=== PATIENT | female | born 1945 | race Caucasian/White ===

== ENCOUNTER 2017-04-18 05:14 | Inpatient (IN) ==
[2017-04-18] MEDS ORDERED: NOZIN NASAL SWAB NAS ONE ×2 (05:20→09:19)
[2017-04-18] MEDS ORDERED: METOCLOPRAMIDE 10mg/2ml INJECTION IVP ONE (05:20)
[2017-04-18] MEDS ORDERED: ACETAMINOPHEN 500 MG TABLET PO ONE (05:20)
[2017-04-18] MEDS ORDERED: CEFAZOLIN 1 G INJECTION IV ONE (05:20)
[2017-04-18] MEDS ORDERED: EPINEPHrine 0.25 MG, BUPIVACAINE 0.25% PF 75 ML, MORPHINE SULFATE 15 MG, KETOROLAC INJ ... IJ ONE (05:20)
[2017-04-18] MEDS ORDERED: ONDANSETRON 4 MG/2 ML INJECTION IVP ONE (05:20)
[2017-04-18] MEDS ORDERED: LIDOCAINE 1% (10mg/ml) 10mL MDV SQ ONE (05:20)
[2017-04-18] MEDS ORDERED: TRANEXAMIC ACID 1,000 MG in NS 100 ML TOP SCH (05:20)
[2017-04-18] MEDS ORDERED: FAMOTIDINE PREMIX 20 MG/50 ML BAG IV ONE (05:20)
[2017-04-18] MEDS: NS 1,000 ML IV SCH ×6 (05:59→22:57)
[2017-04-18] MEDS: SALINE FLUSH 10ml SYRINGE IVF PRN ×3 (06:00→14:31)
[2017-04-18] MEDS ORDERED: VANCOMYCIN 1,000 MG INJECTION ONE (06:34)
[2017-04-18] MEDS ORDERED: PROPOFOL 500 MG/50 ML VIAL IV ONE ×2 (06:42→08:00)
[2017-04-18] MEDS ORDERED: SEVOFLURANE 250ml LIQUID IH ONE (06:44)
[2017-04-18] MEDS ORDERED: MIDAZOLAM 5mg/5ml INJECTION IVP ONE (06:52)
[2017-04-18] MEDS ORDERED: ROPIVACAINE 0.5% (5mg/ml) 30ml INJ ONE (06:53)
[2017-04-18] MEDS ORDERED: GLYCOPYRROLATE 0.4 MG/2 ML INJECTION ONE (07:12)
[2017-04-18] MEDS ORDERED: LIDOCAINE 2% JELLY Tube 30ml ONE (07:13)
[2017-04-18] MEDS ORDERED: VANCOMYCIN 1,000 MG INJECTION IAR ONE (07:14)
[2017-04-18] MEDS ORDERED: FentaNYL 250 MCG/5 ML INJECTION ONE (07:22)
[2017-04-18] MEDS ORDERED: KETAMINE 500 MG/10 ML INJECTION ONE (07:24)
--- NOTE | 2017-04-18 07:47 | Anesthesia Preoperative Report ---
Anesthesia Preoperative Record - Date and Time Date: 04/18/17 Preoperative Diagnosis: left knee osteoarthritis Proposed Procedure: left total knee arthroplasty NPO Since Date: 04/18/17 NPO Since Time: 05:00 Allergies/Adverse Reactions: Allergies Allergy/AdvReac Type Severity Reaction Status Date / Time codeine Allergy Intermediate RASH Verified 04/18/17 05:39 - Vital Signs Vital Signs: Temp Pulse Resp BP Pulse Ox 98 F 62 18 138/56 94 04/18/17 06:09 04/18/17 07:03 04/18/17 07:03 04/18/17 07:03 04/18/17 07:03 Height and Weight: Height 1.52 m Weight 90.1 kg Body Mass Index 38.7 - Medications Inpatient Medications: Current Medications Sodium Chloride (Normal Saline) 1,000 mls @ 50 mls/hr IV .Q20H MARIEL Last Admin: 04/18/17 05:59 Dose: 50 mls/hr Tranexamic Acid 1,000 mg/ (Sodium Chloride) 110 mls @ 1,000 mls/min TOP INTRAOP MARIEL Stop: 04/19/17 05:21 Midazolam HCl (Versed) 2 mg IVP O ONE Stop: 04/18/17 06:53 Last Admin: 04/18/17 06:54 Dose: 2 mg Sodium Chloride (Iv Flush) 10 - 80 ml IVF PRN PRN PRN Reason: Flushing Last Admin: 04/18/17 06:04 Dose: 10 ml Vancomycin HCl (Vancocin) 1,000 mg IAR O ONE Stop: 04/18/17 07:15 Home Medications: Home Medications Medication Instructions Recorded Confirmed Type Metformin HCl 500 mg PO TID #0 10/24/16 04/18/17 History Simvastatin [Zocor] 80 mg PO HS #0 tab 10/24/16 04/18/17 History Acetaminophen [Tylenol Extra 1 - 2 tab PO Q6H PRN #0 tab 03/27/17 04/18/17 History Strength] Albuterol Sulfate [Proair Hfa] 2 puff INH Q4-6HPRN PRN #0 03/27/17 04/18/17 History Atenolol 1.5 tab PO BID #0 tab 03/27/17 04/18/17 History Doxepin HCl 1 cap PO DAILY PRN #90 03/27/17 04/18/17 History Doxepin HCl 1 cap PO HS #0 03/27/17 04/18/17 History Mometasone/Formoterol [Dulera 200 2 puff INH BID #0 03/27/17 04/18/17 History Mcg/5 Mcg Inhaler] Triamterene/Hydrochlorothiazid 1 each PO DAILY 04/13/17 04/18/17 History [Triamterene-Hctz 37.5-25 mg Cp] Is Patient on Beta Brandon?: Yes Beta Brandon: Yes - Medical History Respiratory: Reports: Chronic Obstructive Pulmonary Disease (COPD) Cardiovascular: Reports: Hypertension, High Cholesterol Renal/Endocrine: Reports: Diabetes Mellitus Type 2 - Surgical History HEENT Surgeries: Reports: Eye Surgery (Ebenezer Cataract with IOL implant), Other ( Eustachian tube dysfunction) Musculoskeletal Surgery/Tx: Reports: Knee Arthroscopy (Rt) Reproductive Surgery/Treatment: Reports: Section (X2) - Social History Smoking Status: Former smoker Packs per day: 1 Pack-years: 52 (quit 2015) Hx Chewing Tobacco Use: No Second Hand Exposure: No Substance Use Type: does not use Alcohol Intake Frequency: does not drink - Pertinent Findings Laboratory: CBC and BMP 04/18/17 05:50 04/18/17 05:50 BMP 04/18/17 05:50 Sodium 143 Potassium 4.6 Chloride 105 Carbon Dioxide 24 BUN 35.0 H Creatinine 1.4 H Glucose 157 H Calcium 9.8 Liver Function 04/18/17 Range/Units 05:50 Total Bilirubin 0.60 (0.20-1.30) MG/DL AST 19 (14-36) U/L ALT 31 (9-52) U/L Alkaline Phosphatase 110 (38-126) U/L Albumin 4.4 (3.5-5.0) G/DL EKG Rhythm: Normal Sinus Rhythm - Physical Exam Respiratory Exam: Present: lungs clear Cardiovascular Exam: Present: regular rate and rhythm - Airway Assessment Mallampati Score: III TMD: 3 Fingerbreadths Neck Extension: good Teeth: chipped teeth/crowns Overall Assessment: may be difficult mask vent, may be difficult intubation - ASA ASA Score: 3 - Plan Anesthesia: General Inhalation Gases Peripheral Nerve Block: Saphenous-Left - Discussion Discussion: Discussed risks/options/alternatives of anesthesia and questions answered. Patient consents. Nursing pain assessment noted. Present for Discussion: spouse Attestation Statement: Prior to the delivery of any anesthetic medication, I examined the patient, developed the plan, obtained the patient's consent and discussed the risk and benefits of the procedure with the patient/guardian.
[2017-04-18] MEDS ORDERED: HYDROMORPHONE 2 MG/ML INJECTION IVP PRN ×2 (07:52→09:33)
--- NOTE | 2017-04-18 07:52 | Anesthesia Procedure Note ---
Peripheral Nerve Blockade - Procedure Physician: Adam Velez MD Date: 04/18/17 Surgical Procedure: Left Total Knee Discussion: Discussed risks/options/alternatives of anesthesia and questions answered. Patient consents. Nursing pain assessment noted. Block Start: 06:58 Block Stop: 07:02 Blocked Employed: Adductor Canal Indication: Post-Operative Pain Approach: Left Side Confirmed Position: Supine Patient: Consent, Risks/Benefits Discussed, Informed, Post Block Act. Discussed IV Sedation: Yes Sedation: Sedate w/Meaningful Contact Midazolam (mg): 2 Initial Vital Signs: Pulse Rhythm 04/18/17 05:55 Post Vital Signs: Temp Pulse Resp BP Pulse Ox 98 F 62 18 138/56 94 04/18/17 06:09 04/18/17 07:03 04/18/17 07:03 04/18/17 07:03 04/18/17 07:03 Initial Pain Pain Score: 0 Post Block Pain Score: 0 Prep: Chlorhexadine/ETOH - Injectate Ropivacaine (%): 0.5 Ropivacaine (mL): 20 Was Epi 1:200,000 Used?: No Injection: Injection made incrementally with constant monitoring and aspiration every ml
[2017-04-18] MEDS ORDERED: HYDROMORPHONE 2 MG/ML INJECTION ONE (08:10)
--- NOTE | 2017-04-18 08:44 | Operative Note ---
- Procedure Date of Admission: 04/18/17 Side: left Preoperative Diagnosis: knee primary DJD Postoperative Diagnosis: Same as preoperative diagnosis. Operation: total knee arthroplasty (left) Surgeon: Baldomero Velez MD [place] [employer] Supervisor: JIAN Singh Complications: None. Anesthesia: General Inhalation Gases Peripheral Nerve Block: Saphenous-Left Estimated Blood Loss: See Anesthesia Record. Fluids: Please see Anesthesia Record. Description of Procedure: Mrs. Ruiz and the [] knee were identified and marked in the preoperative holding area. She was brought back to the operating suite and placed supine on the operating table. Spinal anesthetic was administered. The operative lower extremity was prepped and draped in a sterile fashion. Timeout was performed. She had a fixed varus deformity with no flexion contracture. An anterior midline incision followed by medial parapatellar arthrotomy was performed. The tourniquet was inflated to 250 mmHg. The patella was resurfaced to a size 29. A distal femoral osteotomy was then performed in 5 of valgus using intramedullary guide. The femur was sized at a 3 and rotation set using the epicondylar axis. The tourniquet was then deflated. Distal femoral cuts were performed with a 4-in-1 cutting block. A proximal tibial cut was then made perpendicular to its long axis using an extramedullary guide. At this point remaining meniscus and osteophytes were removed and joint cocktail was injected throughout soft tissue. Trial components were placed with an 11 mm spacer. This allowed for full extension and flexion and the patella tracked well. The leg was then exsanguinated and the tourniquet inflated to 250 mmHg. The tibia was then stamped at a size 3 at the proper rotation. The bone was then prepared for cementing and [employer]do Triathalon components were cemented into place and allowed to cure in extension. The tourniquet was then let down and hemostasis obtained with electrocautery. Betadine solution was used during the curing period for 3 minutes. 1 g of TXA was also allowed to sit in the knee for 5 minutes. 1 g of vancomycin powder was placed into the joint before the capsulotomy was repaired with #1 Vicryl. I then left my physiotherapy assistant close the subcutaneous tissue and skin with 2-0 Vicryl and Monocryl. Dermabond was used on the skin. The drapes were then removed and she was taken to recovery room under the care of anesthesia.
--- NOTE | 2017-04-18 08:53 | History & Physical Update ---
- History and Physical Update Date: 04/18/17 Update: I evaluated this patient and found no changes in the history and clinical exam findings. The treatment plan and recommendations are also unchanged from the previous documentation.
[2017-04-18] MEDS ORDERED: ONDANSETRON 4 MG/2 ML INJECTION IVP PRN (09:19)
[2017-04-18] MEDS ORDERED: DiphenhydrAMINE 50 MG/ML INJECTION IVP PRN (09:19)
[2017-04-18] MEDS ORDERED: LORazepam 1 MG TABLET PO PRN (09:19)
[2017-04-18] MEDS ORDERED: ALBUTEROL HFA INHALER 8gm ORAL INH PRN (09:19)
[2017-04-18] MEDS ORDERED: DiphenhydrAMINE 25 MG CAPSULE PO PRN (09:19)
[2017-04-18] MEDS ORDERED: DOXEPIN 10 MG CAPSULE PO PRN (09:19)
[2017-04-18] MEDS ORDERED: TRANEXAMIC ACID 1,000 MG in NS 100 ML TOP ONE ×2 (09:30→09:32)
--- NOTE | 2017-04-18 09:38 | Anesthesia Postoperative Note ---
- Date and Time Date: 04/18/17 Time: 09:35 - Status Patient Participated in Evaluation: Patient Participated in Person Vital Signs: Temp Pulse Resp BP Pulse Ox 9.8 F L 73 16 139/71 100 04/18/17 09:02 04/18/17 09:02 04/18/17 09:02 04/18/17 09:02 04/18/17 09:02 Respiratory Function: Airway Patent Cardiovascular Function: Regular Pulse Mental Status: Alert and Oriented Pain Intensity: 8 (tolerable) Hydration: IV Infusing Complications During Recover: None Apparent - Follow-Up Instructions Instructions: Per Surgeon
[2017-04-18] MEDS ORDERED: INSULIN REGULAR, HUMAN 100 UNIT/ML INJECTION IVP ONE (09:41)
--- NOTE | 2017-04-18 09:51 | XRay Report ---
Indication: Lt TKA PROCEDURE: XR knee LT 2V: Encounter: Initial Comparison: Left knee radiographs dated April 06, 2017 Findings: Postoperative changes of left total knee replacement are seen. There is expected postoperative subcutaneous gas. No evidence of hardware failure or acute fracture. No retained radiopaque surgical instruments or sponges. Overlying material causing artifact. Impression: New left total knee prosthesis without evidence of immediate complication. .
[2017-04-18] MEDS: ACETAMINOPHEN 325 MG TABLET PO SCH ×4 (10:48→22:52)
--- NOTE | 2017-04-18 11:42 | Pharmacy Consult ---
Pharmacy Consult-Warfarin - Consult Information 71 y.o. Female post op left total knee arthroplasty. Warfarin protocol ordered post-op. Patient is warfarin naive. goal INR= 1.5 to 2.0. Will give Warfarin 4 mg po today. Patient also has order for Lovenox 40 mg sq daily until INR > 1.5. Pharmacy will monitor and adjust as needed. Thank you for the protocol, Cassie Arango RPh
[2017-04-18] MEDS: DOCUSATE SODIUM 100 MG CAPSULE PO SCH ×2 (11:59→20:34)
[2017-04-18] MEDS: TRIAMTERENE/HCTZ 37.5 MG-25 MG TABLET PO SCH (11:59)
[2017-04-18] MEDS: POLYETHYL GLYCOL 3350 17gm PACKET PO SCH (11:59)
[2017-04-18] MEDS ORDERED: WARFARIN 4 MG TABLET PO SCH (12:00)
[2017-04-18] MEDS ORDERED: PNEUMOCOCCAL 13 VACCINE 0.5ml INJECTION IM ONE (12:59)
[2017-04-18] MEDS: TRAMADOL 50 MG TABLET PO PRN ×2 (13:01→20:33)
[2017-04-18] MEDS: INSULIN ASPART 100unit/ml INJECTION SQ PRN (13:02)
[2017-04-18] MEDS: ATENOLOL 50 MG TABLET PO SCH ×2 (13:53→20:30)
[2017-04-18] MEDS: NOZIN NASAL SWAB NAS SCH ×3 (15:48→23:19)
[2017-04-18] MEDS: CEFAZOLIN 2 G in NS 100 ML IV SCH ×2 (15:49→23:39)
--- NOTE | 2017-04-18 17:09 | Consult Note ---
<Mary Mccray - Last Filed: 04/18/17 17:02> Consult Information - Data of Consult Consult date: 04/18/17 Requesting Physician: Adam Velez MD Primary Care Provider: Collin Alexis MD Family Provider: Collin Alexis MD - Consult Narrative Reason for consult: Hyperglycemia, hypertension History of present illness: Anni Ruiz is a very pleasant 71-year-old female who underwent an elective left total arthoplasty by Dr. Velez today, 04/18/17, due to severe DJD. She has a known history of Type 2 DM for which she takes metformin 500mg TID as well as hypertension and GERD. Following her surgery, she was noted to have hyperglycemia. She reports that about a week prior to her surgery she was seen by her PCP, Dr. Alexis, and had her A1c checked which came back elevated at 8. She reports that her previous A1c was around 7 and was surprised by the increase. She denies any significant changes in her lifestyle or health. She admits that recently she has not been monitoring her sugar intake and indulging on Anjelica popcorn and cupcakes frequently. She also states that her physical activity had decreased significantly prior to her surgery due to her knee pain from DJD. Currently her metformin is on hold in light of her recent surgery so sliding scale insulin was initiated and the hospitalist service was consulted for medical management. She denies any other concerns or complaints. No recent fevers, chill, chest pain, shortness of breath, abdominal pain, nausea, vomiting, diarrhea or dysuria. She does admit to a history of seasonal allergies and eczema as well as constipation. On exam, she is seen while sitting in her recliner, watching TV with the polar pack on her left leg. She is alert, orientated and cooperative on exam. Cardiac exam reveals regular rate and rhythm and lungs are clear to auscultation. Abdomen is soft, obese, nontender with active bowel sounds. SCD noted to right lower leg and polar pack noted to left lower leg. 2+ pedal pulses bilaterally. N/V intact. During the history, she did mention vaginal itching recently but denies any discharge. Area was not examined during exam due to family present in the room. Review of Systems All systems: reviewed and no additional remarkable complaints except as stated - Constitutional Constitutional: Absent: chills, fatigue, fever(s), headache(s), weakness - EENMT Eyes: Absent: blurry vision, change in vision Nose: Present: allergies. Absent: nosebleeds Mouth/Throat: Absent: sore throat, changes in swallowing, painful swallowing - Cardiovascular Cardiovascular: Absent: chest pain, palpitations, syncope, dyspnea on exertion, orthopnea Vascular: Absent: pedal edema, unilateral swelling - Respiratory Respiratory: Absent: cough, dyspnea, hemoptysis, dyspnea on exertion, wheezing - Gastrointestinal Gastrointestinal: Present: constipation. Absent: abdominal pain, change in bowel habits, change in stool character, diarrhea, hematemesis, nausea, vomiting - Genitourinary Genitourinary: Absent: difficulty urinating, dysuria, flank pain - Musculoskeletal Musculoskeletal: Absent: back pain - Integumentary/Breasts Integumentary: Present: rash (eczema). Absent: swelling - Neurological Neurological: Present: restless legs. Absent: confusion, convulsions, dizziness , headache(s), memory loss, weakness - Psychiatric Psychiatric: Absent: anxiety, depression - Endocrine Endocrine: Absent: palpitations, polydipsia, polyphagia, polyuria - Hematologic/Lymphatic Hematologic/Lymphatic: Absent: easy bruising - Allergic/Immunologic Allergic/Immunologic: Present: seasonal rhinorrhea PFSH Patient Stated Medical History Hypertension Yes Other Cardiology Yes: chronic venous insufficiency Asthma Yes Chronic Obstructive Pulmonary Yes Disease (COPD) Pulmonary Embolism Yes: in her 20's Sleep Apnea No Other Respiratory Yes: Allergic rhinitis Diabetes Mellitus Type 2 Yes Gastroesophageal Reflux Yes Disease Hx Renal Disease Yes: CKD Osteoarthritis Yes: GENERALIZED Other Musculoskeletal Yes: Mixed connective tissue disease Other Yes: Fragile skin, dermatitis Post Menopausal Yes Surgical History: x2. tonsillectomy. Left TKA - 04/2017. Family History Updates: mother - , 85, CVA, HTN. father - , 62 , lung CA, cirrhosis, CAD. son - alive, 39, recovering ETOH and drug abuse, HTN. daughter - alive, 36, HTN. - Social History Smoking status: Former smoker Quit date: 11/06/15 Time spent discussing smoking cessation with patient: 3 to 10 minutes Substance use type: does not use Alcohol intake frequency: does not drink Housing: house Household members: spouse Current occupational status: retired Does patient use chewing tobacco?: No Current residence: Apartment/Private Home Social history: PCP - Dr. Walden. Medications Home Medications Medication Instructions Recorded Confirmed Type Metformin HCl 500 mg PO TID #0 10/24/16 04/18/17 History Simvastatin [Zocor] 80 mg PO HS #0 tab 10/24/16 04/18/17 History Acetaminophen [Tylenol Extra 1 - 2 tab PO Q6H PRN #0 tab 03/27/17 04/18/17 History Strength] Albuterol Sulfate [Proair Hfa] 2 puff INH Q4-6HPRN PRN #0 03/27/17 04/18/17 History Atenolol 1.5 tab PO BID #0 tab 03/27/17 04/18/17 History Doxepin HCl 1 cap PO DAILY PRN #90 03/27/17 04/18/17 History Doxepin HCl 1 cap PO HS #0 03/27/17 04/18/17 History Mometasone/Formoterol [Dulera 200 2 puff INH BID #0 03/27/17 04/18/17 History Mcg/5 Mcg Inhaler] Triamterene/Hydrochlorothiazid 1 each PO DAILY 04/13/17 04/18/17 History [Triamterene-Hctz 37.5-25 mg Cp] Allergies Allergy/AdvReac Type Severity Reaction Status Date / Time codeine Allergy Intermediate RASH Verified 04/18/17 05:39 Exam Vital Signs: Temp Pulse Resp BP Pulse Ox 96.8 F 60 16 188/79 H 100 04/18/17 16:16 04/18/17 16:16 04/18/17 16:16 04/18/17 16:16 04/18/17 16:16 Height: 5 ft Weight: 92.6 kg Body Mass Index: 38.7 - Constitutional Present: no acute distress, well nourished, well developed, morbidly obese, cooperative - Routine HEENT Exam Head: Present: normocephalic, atraumatic Eye: Present: PERRL. Absent: conjunctival icterus, scleral injection ENT: Present: mucous membranes moist - Routine Neck Exam Present: supple, full ROM, trachea midline - Routine Chest/Breast/Axilla Exam Chest wall: Absent: tenderness - Routine Respiratory Exam Absent: accessory muscle use - Detailed Respiratory Exam Present: clear to auscultation. Absent: rales, rhonchi, wheezes - Routine Cardiovascular Exam Present: RRR, S1, S2 - Routine Abdominal Exam Present: soft, normoactive bowel sounds, non distended, non tender. Absent: rebound, guarding - Routine Exam Comments: deferred - Routine Extremities Exam Present: pulses intact, normal capillary refill. Absent: cyanosis, clubbing, calf tenderness Comments: tenderness to left knee following surgery (01/13) at rest; SCD on right lower extremity. - Routine Back/Spine/Pelvis Exam Back/Spine: Absent: CVA tenderness - Routine Skin Exam Present: intact, dry, warm, rash (eczema). Absent: erythema - Routine Neurological Exam Present: alert, oriented X3, normal tone, hearing grossly intact, normal speech. Absent: facial asymmetry - Routine Psychiatric Exam Present: normal affect, normal thought process, cooperative, good insight, good judgment Results - Labs CBC & Chem 7: 04/18/17 05:50 04/18/17 05:50 Assessment and Plan (1) Hypertension Current visit: No Status: Chronic (2) Hypercholesteremia Current visit: No Status: Chronic (3) DM type 2 (diabetes mellitus, type 2) Current visit: No Status: Chronic (4) COPD (chronic obstructive pulmonary disease) Current visit: No Status: Chronic (5) Asthma Current visit: No Status: Chronic (6) Constipation Current visit: Yes Status: Acute (7) S/P total knee arthroplasty Current visit: Yes Status: Acute DVT Prophylaxis: SCD's, Lovenox Assessment and Plan: . S/P left TKA. * Patient underwent left TKA by Dr. Velez on 04/18/17. * Continue pain control per Dr. Velez; tylenol and ultram as needed. * Zofran as needed for nausea and vomiting. * Encourage participation in therapy for strengthening and improved functional ability. * Coumadin initated with pharmacy to manage with a goal of 1.5-2. Bridge therapy with Lovenox until therapeutic. * Recheck labs in AM to monitor blood counts, electrolytes and renal function. * Renal function noted to be elevated on exam with BUN 35 and SCr 1.4. Osmolality also elevated at 256. Recommend 1L NS x 1 bag for hydration and recheck in AM. . Hypertension, chronic. * Continue home medications including atenolol and maxzide-25. * Monitor blood pressure closely. . Hyperlipidemia, chronic. * Continue home simvastatin. * Encourage monitoring with PCP as outpatient. . DM Type 2, uncontrolled, chronic. * Recent A1c elevated at 8 per patient report, elevated from prior A1c 6 months ago at 7. Patient believes elevation due to poor diet. Encouraged increased activity, decreasing soda intake and close monitoring of diet upon discharge. * Monitor blood sugars closely with BGMS. Sliding scale insulin as needed. Metformin remains on hold in light of recent surgery. * Carb consistent diet. . COPD/Asthma, chronic. * Continue home treatments including Dulera and Albuterol as needed. * History of eczema and seasonal allergies. May consider daily zyrtec for additional relief. Bendaryl as needed for itching. . Constipation, acute on chronic. * Bowel motivation with stool softeners including dulcolax, colace and MOM. * Recommend additional treatment as outpatient. . Depression, chronic. * Continue home Sinequan. Ativan as needed for sleep. * In light of significant family history of substance abuse tendencies, discussed with patient use of narcotic pain medication and offered resources if she had any concerns. She denied any concerns at this time. Upon discharge, patient care will be returned to her PCP. Hospital Course Summary Disclaimer: The visit summary below is not to be considered part of the above Progress Note. Hospital Course: 04/18/17 17:29 . S/P left TKA. * Patient underwent left TKA by Dr. Velez on 04/18/17. * Continue pain control per Dr. Velez; tylenol and ultram as needed. * Zofran as needed for nausea and vomiting. * Encourage participation in therapy for strengthening and improved functional ability. * Coumadin initated with pharmacy to manage with a goal of 1.5-2. Bridge therapy with Lovenox until therapeutic. * Recheck labs in AM to monitor blood counts, electrolytes and renal function. * Renal function noted to be elevated on exam with BUN 35 and SCr 1.4. Osmolality also elevated at 256. Recommend 1L NS x 1 bag for hydration and recheck in AM. . Hypertension, chronic. * Continue home medications including atenolol and maxzide-25. * Monitor blood pressure closely. . Hyperlipidemia, chronic. * Continue home simvastatin. * Encourage monitoring with PCP as outpatient. . DM Type 2, uncontrolled, chronic. * Recent A1c elevated at 8 per patient report, elevated from prior A1c 6 months ago at 7. Patient believes elevation due to poor diet. Encouraged increased activity, decreasing soda intake and close monitoring of diet upon discharge. * Monitor blood sugars closely with BGMS. Sliding scale insulin as needed. Metformin remains on hold in light of recent surgery. * Carb consistent diet. . COPD/Asthma, chronic. * Continue home treatments including Dulera and Albuterol as needed. * History of eczema and seasonal allergies. May consider daily zyrtec for additional relief. Bendaryl as needed for itching. . Constipation, acute on chronic. * Bowel motivation with stool softeners including dulcolax, colace and MOM. * Recommend additional treatment as outpatient. . Depression, chronic. * Continue home Sinequan. Ativan as needed for sleep. * In light of significant family history of substance abuse tendencies, discussed with patient use of narcotic pain medication and offered resources if she had any concerns. She denied any concerns at this time. Upon discharge, patient care will be returned to her PCP. Sepsis Assessment - Focused Exam Vital Signs Temp Pulse Resp BP Pulse Ox 04/18/17 16:16 96.8 F 60 16 188/79 H 100 04/18/17 13:50 55 L 173/71 H 100 04/18/17 12:40 96.1 F L 04/18/17 12:29 55 L 16 150/69 H 99 04/18/17 12:00 58 L 16 193/94 H 100 04/18/17 11:30 58 L 16 135/66 100 04/18/17 11:15 56 L 16 156/69 H 95 04/18/17 10:59 56 L 16 189/73 H 99 04/18/17 10:45 66 183/76 H 98 04/18/17 10:37 94 04/18/17 10:29 95.5 F L 65 16 179/75 H 85 L 04/18/17 10:16 97.1 F 04/18/17 10:15 62 27 H 164/74 H 99 04/18/17 10:05 59 L 25 H 174/70 H 100 04/18/17 10:00 60 24 162/77 H 100 04/18/17 09:55 62 27 H 154/82 H 100 04/18/17 09:50 63 25 H 162/75 H 100 04/18/17 09:45 64 24 161/74 H 100 04/18/17 09:40 66 16 160/73 H 98 04/18/17 09:35 67 26 H 161/71 H 99 04/18/17 09:30 68 22 178/77 H 99 04/18/17 09:25 68 20 164/81 H 99 04/18/17 09:20 69 25 H 174/73 H 100 04/18/17 09:15 70 27 H 159/66 H 100 04/18/17 09:10 71 25 H 176/91 H 100 04/18/17 09:05 72 33 H 170/78 H 100 04/18/17 09:02 9.8 F L 73 16 139/71 100 04/18/17 07:03 62 18 138/56 94 04/18/17 06:58 58 L 15 137/74 96 04/18/17 06:09 98 F 60 17 180/76 H 96 04/18/17 06:08 60 Capillary refill: < 2-3 Seconds <Tamra Ward L - Last Filed: 04/18/17 20:20> Consult Information - Data of Consult Requesting Physician: Adam Velez MD Primary Care Provider: Collin Alexis MD Family Provider: Collin Alexis MD [facility] Patient Stated Medical History Hypertension Yes Other Cardiology Yes: chronic venous insufficiency Asthma Yes Chronic Obstructive Pulmonary Yes Disease (COPD) Pulmonary Embolism Yes: in her 20's Sleep Apnea No Other Respiratory Yes: Allergic rhinitis Diabetes Mellitus Type 2 Yes Gastroesophageal Reflux Yes Disease Hx Renal Disease Yes: CKD Osteoarthritis Yes: GENERALIZED Other Musculoskeletal Yes: Mixed connective tissue disease Other Yes: Fragile skin, dermatitis Post Menopausal Yes Exam Vital Signs: Temp Pulse Resp BP Pulse Ox 96.9 F 64 18 162/66 H 99 04/18/17 19:29 04/18/17 19:29 04/18/17 19:29 04/18/17 19:29 04/18/17 17:34 Height: 1.52 m Weight: 92.6 kg Results - Labs CBC & Chem 7: 04/18/17 05:50 04/18/17 05:50 Assessment and Plan (1) COPD (chronic obstructive pulmonary disease) Current visit: No Status: Chronic (2) Asthma Current visit: No Status: Chronic (3) DM type 2 (diabetes mellitus, type 2) Current visit: No Status: Chronic (4) Hypercholesteremia Current visit: No Status: Chronic (5) Hypertension Current visit: No Status: Chronic (6) Constipation Current visit: Yes Status: Acute (7) S/P total knee arthroplasty Current visit: Yes Status: Acute Assessment and Plan: 04/18/2017-I reviewed this chart, the patient history, and the WINDOW DRAPER's/PA's documented findings as above. We discussed and formulated the assessment and plan as above with the additions below.-Dr. Ward I seen and examined the patient independently of my physician leasing assistant. Patient is seen this evening in her room after supper. She has some mild left thigh pain. Otherwise she is feeling well. She does notice some mild cough postoperatively. She denies any shortness of breath or chest pain. She denies any abdominal pain. She is eating and drinking well and has no nausea. She is urinating without difficulty. On exam she is alert and oriented 3 and in no acute distress. Chest clear to auscultation. Cardiovascular reveals a regular rate and rhythm. Abdomen is soft and nontender and nondistended with positive bowel sounds. Extremities reveal trace edema to the left foot and no edema to the right foot. Patient states her left foot and ankle are always a little more swollen than the right. Regarding diabetes, will add routine insulin with meals and continue sliding scale insulin. Can restart metformin 48 hours after surgery. Discussed goals for managing blood sugar perioperatively with Dr. Velez today. Hold Maxide until we can repeat basic metabolic profile including BUN/ creatinine. If still elevated, may need to check her preop levels to see if this is at baseline. Overall the patient appears to be doing very well postoperatively. We will continue to follow along with you. Thank you for allowing us to participate in the care of your patient. Hospital Course Summary Disclaimer: The visit summary below is not to be considered part of the above Progress Note. Sepsis Assessment - Focused Exam Vital Signs Temp Pulse Resp BP Pulse Ox 04/18/17 19:29 96.9 F 64 18 162/66 H 04/18/17 17:34 94 16 99 04/18/17 16:16 96.8 F 60 16 188/79 H 100 04/18/17 13:50 55 L 173/71 H 100 04/18/17 12:40 96.1 F L 04/18/17 12:29 55 L 16 150/69 H 99 04/18/17 12:00 58 L 16 193/94 H 100 04/18/17 11:30 58 L 16 135/66 100 04/18/17 11:15 56 L 16 156/69 H 95 04/18/17 10:59 56 L 16 189/73 H 99 04/18/17 10:45 66 183/76 H 98 04/18/17 10:37 94 04/18/17 10:29 95.5 F L 65 16 179/75 H 85 L 04/18/17 10:16 97.1 F 04/18/17 10:15 62 27 H 164/74 H 99 04/18/17 10:05 59 L 25 H 174/70 H 100 04/18/17 10:00 60 24 162/77 H 100 04/18/17 09:55 62 27 H 154/82 H 100 04/18/17 09:50 63 25 H 162/75 H 100 04/18/17 09:45 64 24 161/74 H 100 04/18/17 09:40 66 16 160/73 H 98 04/18/17 09:35 67 26 H 161/71 H 99 04/18/17 09:30 68 22 178/77 H 99 04/18/17 09:25 68 20 164/81 H 99 04/18/17 09:20 69 25 H 174/73 H 100 04/18/17 09:15 70 27 H 159/66 H 100 04/18/17 09:10 71 25 H 176/91 H 100 04/18/17 09:05 72 33 H 170/78 H 100 04/18/17 09:02 9.8 F L 73 16 139/71 100
[2017-04-18] MEDS ORDERED: INSULIN ASPART 100unit/ml INJECTION SQ SCH (17:30)
[2017-04-18] MEDS: SIMVASTATIN 80 MG TABLET PO SCH ×2 (20:32→23:20)
[2017-04-18] MEDS: SENNOSIDES 8.6 MG TABLET PO SCH ×2 (20:32→23:20)
[2017-04-18] MEDS: ENOXAPARIN 40 MG/0.4 ML INJECTION SQ SCH (20:34)
[2017-04-18] MEDS: DOXEPIN 25 MG PO SCH ×2 (20:35→23:20)
[2017-04-19] MEDS: NOZIN NASAL SWAB NAS SCH ×2 (04:52→05:36)
[2017-04-19] MEDS: INSULIN ASPART 100unit/ml INJECTION SQ PRN (04:52)
[2017-04-19] MEDS: TRAMADOL 50 MG TABLET PO PRN ×2 (06:15→12:51)
--- NOTE | 2017-04-19 07:38 | Orthopedic Progress Note ---
Date: Subjective/Severity of Illness: Anni is doing great this AM. Denies much pain in the knee. No CP or breathing problems. Blood sugars being managed by Hospitalist. BS 150's this AM. Renal function slightly improved with IVF, but still has underlying CKD. She was up with PT yesterday with good tolerance. Orthopedic Objective PO Vital signs: Temp Pulse Resp BP Pulse Ox 97.5 F 73 20 129/76 95 04/19/17 04:12 04/19/17 04:12 04/19/17 04:12 04/19/17 04:12 04/19/17 04:12 Height and Weight: Height 5 ft Weight 204 lb 2.369 oz Body Mass Index 38.7 - Constitutional General Appearance: Present: alert, no acute distress - Respiratory Exam Present: non-labored - Cardiovascular Exam Present: pedal pulses intact - Extremities Exam Extremities: Present: pulses intact. Absent: calf tenderness - Surgical Site Incision: clean, dry, intact, Mepilex dressing intact, no drainage - Neurological Exam Present: intact to light touch, no deficits - Psychiatric Exam Present: alert - Labs Result Diagrams: 04/19/17 04:25 04/19/17 04:25 Abnormal lab results 04/19/17 04/19/17 Range/Units 04:25 04:25 RBC 3.38 L (4.00-5.20) M/MM3 Hgb 10.0 L D (12-16) GM/DL Hct 32.2 L D (36-46) % BUN 29.0 H (7-17) MG/DL Creatinine 1.3 H D (0.7-1.2) MG/DL Glucose 150 H (65-110) MG/DL Calculated Osmolality 282 H (261-280) MOSM/KG Calcium 8.2 L D (8.4-10.2) MG/DL H & H 04/18/17 04/19/17 Range/Units 05:50 04:25 Hgb 12.0 10.0 L D (12-16) GM/DL Hct 37.4 32.2 L D (36-46) % Coagulation 04/19/17 Range/Units 04:25 INR 1.11 (0.99-1.21) Orthopedic Assessment and Plan (1) S/P total knee arthroplasty Status: Acute Qualifiers: Laterality: left Qualified Code(s): Z96.652 - Presence of left artificial knee joint Assessment and Plan: Current anti-coagulation protocol for VTE prophylaxis. SCD's. PT/OT services to improve independent function. Discharge Planning per Case Management. (2) Hypertension Status: Chronic (3) Hypercholesteremia Status: Chronic (4) DM type 2 (diabetes mellitus, type 2) Status: Chronic (5) COPD (chronic obstructive pulmonary disease) Status: Chronic (6) Asthma Status: Chronic (7) Constipation Status: Acute Hospital Course Summary Disclaimer: The visit summary below is not to be considered part of the above Progress Note. Hospital Course: 04/18/17 17:29 . S/P left TKA. * Patient underwent left TKA by Dr. Velez on 04/18/17. * Continue pain control per Dr. Velez; tylenol and ultram as needed. * Zofran as needed for nausea and vomiting. * Encourage participation in therapy for strengthening and improved functional ability. * Coumadin initated with pharmacy to manage with a goal of 1.5-2. Bridge therapy with Lovenox until therapeutic. * Recheck labs in AM to monitor blood counts, electrolytes and renal function. * Renal function noted to be elevated on exam with BUN 35 and SCr 1.4. Osmolality also elevated at 256. Recommend 1L NS x 1 bag for hydration and recheck in AM. . Hypertension, chronic. * Continue home medications including atenolol and maxzide-25. * Monitor blood pressure closely. . Hyperlipidemia, chronic. * Continue home simvastatin. * Encourage monitoring with PCP as outpatient. . DM Type 2, uncontrolled, chronic. * Recent A1c elevated at 8 per patient report, elevated from prior A1c 6 months ago at 7. Patient believes elevation due to poor diet. Encouraged increased activity, decreasing soda intake and close monitoring of diet upon discharge. * Monitor blood sugars closely with BGMS. Sliding scale insulin as needed. Metformin remains on hold in light of recent surgery. * Carb consistent diet. . COPD/Asthma, chronic. * Continue home treatments including Dulera and Albuterol as needed. * History of eczema and seasonal allergies. May consider daily zyrtec for additional relief. Bendaryl as needed for itching. . Constipation, acute on chronic. * Bowel motivation with stool softeners including dulcolax, colace and MOM. * Recommend additional treatment as outpatient. . Depression, chronic. * Continue home Sinequan. Ativan as needed for sleep. * In light of significant family history of substance abuse tendencies, discussed with patient use of narcotic pain medication and offered resources if she had any concerns. She denied any concerns at this time. Upon discharge, patient care will be returned to her PCP.
--- NOTE | 2017-04-19 08:14 | Pharmacy Consult ---
Pharmacy Consult-Warfarin - Laboratory Information 04/19/17 04:25 INR 1.11 - Consult Information Will give warfarin 4 mg today. Goal INR is 1.5-2.5. Will continue to monitor. Thank you.
[2017-04-19] MEDS: INSULIN ASPART 100unit/ml INJECTION SQ SCH ×2 (08:45→13:03)
[2017-04-19] MEDS ORDERED: SENNOSIDES 8.6 MG TABLET PO PRN (08:56)
[2017-04-19] MEDS: ACETAMINOPHEN 325 MG TABLET PO SCH ×2 (09:00→12:51)
[2017-04-19] MEDS: ATENOLOL 50 MG TABLET PO SCH (10:10)
[2017-04-19] MEDS: DOCUSATE SODIUM 100 MG CAPSULE PO SCH (10:11)
[2017-04-19] MEDS: POLYETHYL GLYCOL 3350 17gm PACKET PO SCH (10:11)
[2017-04-19] MEDS: NS 1,000 ML IV SCH (11:46)
--- NOTE | 2017-04-19 11:53 | Discharge Summary ---
Orthopedic Discharge Info Date of admission: 04/18/17 05:14 Primary care physician: Collin Cardoza MD Attending Physician: Adam Velez MD Consults: 04/18/17 05:20 Consult to Anesthesiology [CONS] Routine Consulting Provider: JIAN Zamudio Reason For Exam: Preoperative Assessment 04/18/17 09:19 Case Management Consult [CONS] Routine Reason For Exam: Discharge Planning DME-Walker [CONS] Routine Height: 5 ft Weight: 198 lb 10.184 oz Comment: change dressing in 2 weeks Pharmacy Consult [CONS] Routine Pharmacy Consult: Coumadin/Warfarin Total Joint Outpatient Therapy [CONS] Routine Comment: change dressing in 2 weeks 04/18/17 11:37 Physician Consult [CONS] Routine Consulting Provider: Tamra Ward Reason For Exam: HYPERGLYCEMIA Ordering Provider has Notified Gate Tender: Yes Comment: DR. VELEZ REQUESTS TO KEEP BGMS <150 04/19/17 08:03 Dietary Consult [CONS] Routine Comment: Reason For Exam: - Procedures Procedures: Left TKA - Laboratory Result Diagrams: 04/19/17 04:25 04/19/17 04:25 Laboratory: Abnormal lab results 04/19/17 04/19/17 Range/Units 04:25 04:25 RBC 3.38 L (4.00-5.20) M/MM3 Hgb 10.0 L D (12-16) GM/DL Hct 32.2 L D (36-46) % BUN 29.0 H (7-17) MG/DL Creatinine 1.3 H D (0.7-1.2) MG/DL Glucose 150 H (65-110) MG/DL Calculated Osmolality 282 H (261-280) MOSM/KG Calcium 8.2 L D (8.4-10.2) MG/DL H & H 04/18/17 04/19/17 Range/Units 05:50 04:25 Hgb 12.0 10.0 L D (12-16) GM/DL Hct 37.4 32.2 L D (36-46) % Coagulation 04/19/17 Range/Units 04:25 INR 1.11 (0.99-1.21) Orthopedic Discharge HPI - HPI Comments This patient was admitted for elective surgical tx of end stage degenerative joint disease that failed to respond to conservative treatment. Further details of this is found in the admission H&P. Orthopedic Hospital Course Hospital course: 04/19/17 11:52 After appropriate preoperative clearance and signing of operative consent, the patient was given IV antibiotics, according to orthopedic protocol. The patient was taken to the operating room and underwent elective joint arthroplasty. Following surgery, antibiotics were discontinued less than 24 hours according to joint protocol. Appropriate anticoagulants were initiated and SCDs added for DVT prevention. The dressing was clean, dry, and intact. Pain control was obtained via multimodal approach. Bowel motivation addressed with scheduled and PRN medications. Early mobilization was initiated through PT services. Discharge arrangements made by a collaborative effort between the patient and Case Management. Follow-up is scheduled in 2-3 weeks. Discharge instructions given by orthopedic providers and nursing staff at discharge. Discharge condition was good. Ongoing care required?: No - Postoperative Anemia labs monitored daily, no intervention required, HGB drop-acceptable Discharge Plan - Med Rec/Dispo Truvmohinder Instructions: [facility] Postop Instructions Additional Instructions: [facility] ON 04/21/2017 AT 3:00PM FOR PHYSICAL THERAPY EVAL. PHONE [phone] INR LAB DRAWS TWO TIMES EACH WEEK AT [facility] (DR CARDOZA'S OFFICE) ON MONDAYS AND THURSDAYS FOR FOUR WEEKS. HANDLE BENDER LOVENOX INJECTIONS AT [facility]. TAKE ONE INJECTION EACH DAY. Prescriptions: New Enoxaparin Sodium [Lovenox] 40 mg SQ Q24H #5 syr Tramadol [Ultram] 50 - 100 mg PO Q6H PRN #60 PRN Reason: Pain Warfarin [Coumadin] 4 mg PO NOON #30 Acetaminophen [Tylenol] 650 mg PO QID #100 Continue Metformin HCl 500 mg PO TID #0 Simvastatin [Zocor] 80 mg PO HS #0 tab Atenolol 1.5 tab PO BID #0 tab Mometasone/Formoterol [Dulera 200 Mcg/5 Mcg Inhaler] 2 puff INH BID #0 Doxepin HCl 1 cap PO HS #0 Doxepin HCl 1 cap PO DAILY PRN #90 PRN Reason: ITCHING Triamterene/Hydrochlorothiazid [Triamterene-Hctz 37.5-25 mg Cp] 1 each PO DAILY Albuterol Sulfate [Proair Hfa] 2 puff INH Q4-6HPRN PRN #0 PRN Reason: WHEEZING Discontinued Acetaminophen [Tylenol Extra Strength] 1 - 2 tab PO Q6H PRN #0 tab PRN Reason: PAIN/FEVER - Disposition 01 Discharged Home, Self-Care
[2017-04-19] MEDS ORDERED: WARFARIN 4 MG TABLET PO SCH (12:00)
[2017-04-19] MEDS: TRIAMTERENE/HCTZ 37.5 MG-25 MG TABLET PO SCH (12:49)
[2017-04-19] MEDS: ENOXAPARIN 40 MG/0.4 ML INJECTION SQ SCH (12:52)
[2017-04-20] MEDS ORDERED: BISACODYL 10 MG SUPPOSITORY RECTALLY SCH (20:00)
== END 2017-04-19 14:17 | disposition home or self-care (01) | DRG 470 ==
LOC: SRG 05:14
PROVIDERS: ADMIT Orthopaedic Surgery; ATTEND Orthopaedic Surgery